=== PATIENT | female | born 1975 | race Two or more races ===

== ENCOUNTER 2018-07-28 10:29 | Emergency (ER) | payer MEDICARE ==
[2018-07-28] MEDS ORDERED: OXYCODONE-ACETAMINOPHEN 5-325 MG TABLET PO ONE ×2 (11:20→15:14)
--- NOTE | 2018-07-28 11:20 | ER Document Report ---
ED General - General Chief Complaint: Neck and Upper Back Pain Stated Complaint: NECK PAIN/LEG AND ARM WEAKNESS Time Seen by Provider: 07/28/18 11:02 Information source: Patient Notes: 42-year-old female that presents today stating she has had some left leg and left arm numbness. She states her left leg is been numb since 2012 her left arm is been numb since April. Patient states that she had a history of an MRI in [place] in March 2018 showing disc degeneration at C5/C6 with left paracentral disc extrusion causing focal flattening of the left side of the thecal sac and focal impingement upon the left side of the cervical cord. She states that she left [place] a month later and has not followed up. Patient supposedly has had degenerative disc disease since 2009. She has seen multiple pain management specialists. She states she went to see orthopedics in [place] in 2012 when she lived there and was told that she needed 5 years of records. Patient also has a history of posttraumatic stress disorder and rheumatoid arthritis for which she takes no medications for. Patient denies any weakness of the arm or leg. She does states she intermittently falls but this has been since 2014. She did go to see a new primary care physician since moving here recently and saw them for the first time on July 18. This was Dr. Kwesi Galan. He did put a referral in for psychiatry for posttraumatic stress disorder to be seen in September. He also put a referral in for [place] [facility]. She states that she called the orthopedic office and they told her that she needed "5 years of records". She does not have any paint mixer machine here and would like further information and possibly another referral. TRAVEL OUTSIDE OF THE [place] IN LAST 30 DAYS: No - HPI Onset: Other - See above Onset/Duration: Gradual, Intermittent - See above Quality of pain: Achy Severity: Mild Pain Level: 1 Associated symptoms: Other - See above Exacerbated by: Movement Similar symptoms previously: No Recently seen / treated by doctor: No - Related Data Allergies/Adverse Reactions: amoxicillin Allergy (Verified 07/28/18 10:39) Sulfa (Sulfonamide Antibiotics) Allergy (Verified 07/28/18 10:39) Past Medical History - Social History Smoking Status: Unknown if Ever Smoked Family History: Reviewed & Not Pertinent Review of Systems - Review of Systems Constitutional: denies: Fever EENT: denies: Eye discharge, Nose discharge Cardiovascular: denies: Chest pain, Palpitations Respiratory: denies: Short of breath Gastrointestinal: denies: Vomiting Genitourinary: denies: Dysuria Musculoskeletal: denies: Leg swelling Skin: Other - no hives. denies: Rash Neurological/Psychological: Other - no slurred speech -: Yes All other systems reviewed and negative Physical Exam - Vital signs Vitals: Temp Pulse Resp BP Pulse Ox 97.9 F 90 17 138/89 H 100 07/28/18 10:50 07/28/18 10:50 07/28/18 10:50 07/28/18 10:50 07/28/18 10:50 Notes: Reviewed vital signs and nursing note as charted by RN. CONSTITUTIONAL: Alert and oriented and responds appropriately to questions. Well-appearing; well-nourished HEAD: Normocephalic; atraumatic EYES: PERRL ENT: Normal nose; no rhinorrhea; moist mucous membranes; pharynx without lesions noted NECK: Supple; tender to the midline cervical spine without any obvious step- offs, swelling, paraspinal muscular swelling or erythema CARD: Regular rate and rhythm; no murmurs; symmetric distal pulses RESP: Normal chest excursion without splinting or tachypnea; breath sounds clear and equal bilaterally ABD/GI: Normal bowel sounds; non-distended; soft, non-tender BACK: The back appears normal and is non-tender to palpation EXT: Normal ROM in all joints; non-tender to palpation; no edema SKIN: No acute lesions noted NEURO: CN 2-12 intact; 5/5 bilateral upper and lower extremity strength with some decreased sensation to touch of the left arm and left leg. Strong distal pulses with excellent capillary refill PSYCH: The patient's mood and manner are appropriate. Grooming and personal hygiene are appropriate. Course - Re-evaluation Re-evalutation: 07/28/18 11:20 Given the history and physical examination with the length of the patient's symptomatology, with 2+ patellar reflexes and biceps reflexes, with numbness on examination, I will order repeat MRI here and then attempt to help expedite the patient's follow-up with either orthopedics and/or neurosurgery. 07/28/18 15:02 MRI as recorded. No change in examination. Attempted to call Dr. Jimenez to speak to him but it went away to a voicemail of his assistant associate full professor. I do not believe the patient requires immediate surgical intervention. I will have the patient attempt to follow-up with his primary care physician but I will also refer the patient here for orthopedic evaluation at our facility. I will provide the patient a short course of pain medications with strict return precautions. She understands her precautions. 07/28/18 15:06 I actually was able to speak directly to Dr. Jimenez. He states that he will attempt to expedite follow-up with orthopedics they will. He also states that there are local neurosurgeons in the area that he believes he will be able to get her into shortly. He would like me to start the patient on a Medrol Dosepak with some pain medications. I believe this is reasonable. - Vital Signs Vital signs: Temp Pulse Resp BP Pulse Ox 97.9 F 90 17 138/89 H 100 07/28/18 10:50 07/28/18 10:50 07/28/18 10:50 07/28/18 10:50 07/28/18 10:50 Discharge - Discharge Clinical Impression: Paresthesia of left arm and leg, Herniated disc, cervical Condition: Good Disposition: HOME, SELF-CARE Additional Instructions: Come back immediately for any increased numbness, weakness, incontinence, fevers, discoloration of the arm or leg, or any other acute problems. Please follow-up with your primary care physician regarding orthopedics, pain management, and neurosurgery as we have discussed. Prescriptions: Methylprednisolone [Medrol Dosepack (4 mg/Tab) 21 Tab/Dosepak] 21 tab PO ASDIR PRN #1 dspk PRN Reason: Oxycodone HCl/Acetaminophen [Percocet 5-325 mg Tablet] 1 tab PO ASDIR PRN #15 tab PRN Reason: Referrals: KWESI BARGER MD [ACTIVE STAFF] - Follow up as needed
--- NOTE | 2018-07-28 14:32 | RADIOLOGY REPORT (SQ) ---
EXAM DESCRIPTION: MRI CERVICAL SPINE WITHOUT COMPLETED DATE/TIME: 07/28/2018 2:08 pm REASON FOR STUDY: 1; left-sided neck pain with left arm and left leg COMPARISON: None. TECHNIQUE: Sagittal and Axial imaging includes T1, T2, STIR and gradient echo sequences. LIMITATIONS: None. FINDINGS: ALIGNMENT: Straightening of the normal cervical lordosis. VERTEBRAE: Intact. BONE MARROW: Normal. No marrow replacement. Minimal degenerative endplate edema at C5-6 posteriorly. DISCS: Mild upper cervical disc signal change with height loss and posterior disc bulge at C5-6. HARDWARE: None in the spine. CORD AND BASE OF BRAIN: Normal in size and signal intensity. SOFT TISSUES: No soft tissue masses. C1-C2: No significant spinal stenosis. C2-C3: No significant spinal stenosis or exit foraminal stenosis. C3-C4: No significant spinal stenosis or exit foraminal stenosis. C4-C5: No significant spinal stenosis or exit foraminal stenosis. C5-C6: Posterior disc bulge, left greater than right, with effacement of the CSF column and contact o f the anterior cord and mild canal stenosis. Moderate left neural foraminal narrowing secondary to d isc and uncovertebral hypertrophy. C6-C7: No significant spinal stenosis or exit foraminal stenosis. C7-T1: No significant spinal stenosis or exit foraminal stenosis. UPPER THORACIC: Incompletely imaged. No significant spinal stenosis or exit foraminal stenosis. OTHER: No other significant finding. IMPRESSION: Mild degenerative changes greatest at C5-6. There is left paramedian posterior disc wit h contact of the anterior cord and mild canal stenosis. Moderate left neural foraminal narrowing sec ondary to disc and uncovertebral hypertrophy. No additional evidence of acute abnormality in the cervical spine. TECHNICAL DOCUMENTATION: JOB ID: [id number]- All Rights Reserved Reading location - IP/workstation name: [email or web address]-[facility]-
[2018-07-28 15:37] VITALS: BP 115/62
== END 2018-07-28 15:44 | disposition home or self-care (01) ==
LOC: ER 10:29
DX: M50.222 Other cervical disc displacement at C5-C6 level (principal); M50.322 Other cervical disc degeneration at C5-C6 level; R20.0 Anesthesia of skin; Z88.0 Allergy status to penicillin; Z88.2 Allergy status to sulfonamides
CPT/HCPCS: 99284; 82962; 72141; A9270

== ENCOUNTER 2018-09-06 22:01 | Emergency (ER) | payer MEDICARE ==
--- NOTE | 2018-09-06 23:14 | RADIOLOGY REPORT (SQ) ---
3 VIEWS OF THE LEFT ANKLE HISTORY: Joint pain. COMPARISON: None. FINDINGS: The ankle mortise is preserved on these nonstress views. No acute fractures seen. No ankle joint effusion. No radiopaque foreign body is identified. IMPRESSION: No acute fracture or dislocation.
[2018-09-07] MEDS ORDERED: KETOROLAC TROMETHAMINE 60 MG/2 ML SDV IM ONE (00:33)
--- NOTE | 2018-09-07 00:49 | ER Document Report ---
HPI - HPI Time Seen by Provider: 09/07/18 00:24 Pain Level: 5 Notes: Patient is a 42-year-old female who presents emergency department complaining of left lateral ankle pain status post injury about 8 hours ago. Patient states that her ankle inverted and she heard a pop. Patient states that since then her pain has been increasing. She has been limping on it today. Pain does not radiate. She has noticed some mild swelling and bruising. No other concerns or complaints. Denies any headache, fever, head injury, neck pain, URI, sore throat, chest pain, palpitations, syncope, cough, shortness of breath, wheeze, dyspnea, abdominal pain, nausea/vomiting/diarrhea, urinary retention, dysuria, hematuria, loss of control of bowel or bladder, numbness/tingling, saddle anesthesia, muscle paralysis, or rash. - ROS Systems Reviewed and Negative: Yes All other systems reviewed and negative - REPRODUCTIVE Reproductive: DENIES: : - MUSCULOSKELETAL Musculoskeletal: REPORTS: Extremity pain - fell/ijured rt. ankle Past Medical History - Social History Smoking Status: Never Smoker Chew tobacco use (# tins/day): No Drug Abuse: None Family History: Reviewed & Not Pertinent Patient has suicidal ideation: No Patient has homicidal ideation: No Renal/ Medical History: Denies: Hx Peritoneal Dialysis Musculoskeletal Medical History: Reports Hx Arthritis - RA Psychiatric Medical History: Reports: Hx Bipolar Disorder Past Surgical History: Reports: Hx Abdominal Surgery, Hx Tubal Ligation Vertical Provider Document - CONSTITUTIONAL Agree With Documented VS: Yes Notes: PHYSICAL EXAMINATION: GENERAL: Well-appearing, well-nourished and in no acute distress. LUNGS: Breath sounds clear to auscultation bilaterally and equal. No wheezes rales or rhonchi. HEART: Regular rate and rhythm without murmurs, rubs, gallops. Musculoskeletal: Lt foot/ankle: LROM to passive/active dorsiflexion. Strength 4+/5 due to pain. N/V intact distal. + tenderness to the lateral malleolus and area of the ATFL. No bony tenderness of the foot. Achilles intact. There is mild swelling and ecchymosis to the lateral ankle. Extremities: No cyanosis, clubbing, or edema b/l. Peripheral pulses 2+. Capillary refill less than 3 seconds. NEUROLOGICAL: Normal speech, limping gait. Normal sensory, motor exams PSYCH: Normal mood, normal affect. SKIN: Warm, Dry, normal turgor, no rashes or lesions noted. - INFECTION CONTROL TRAVEL OUTSIDE OF THE [place] IN LAST 30 DAYS: No Course - Re-evaluation Re-evalutation: 09/07/18 Patient is an afebrile, well-hydrated, 42-year-old female who presents to the ED with left ankle pain which I suspect to be a sprain versus strain. Vitals are acceptable without any significant tachycardia, tachypnea, or hypoxia. PE is otherwise unremarkable for any neurovascular compromise, obvious tendon/ligament rupture, obvious fracture/dislocation, septic joint. X-ray was unremarkable for any acute pathology. Ankle stirrup and crutches were provided today. Patient was given Toradol. Patient is nontoxic-appearing. Patient is able to ambulate and weight-bear although she is limping. No other labs or imaging warranted at this time based on H&P. Conservative measures otherwise for symptoms. Recheck with your PCM in 3-5 days. Consider consult orthopedics. Return to the ED with any worsening/concerning symptoms otherwise as reviewed in discharge. Patient is in agreement. - Vital Signs Vital signs: Temp Pulse Resp BP Pulse Ox 98.5 F 99 16 114/81 100 09/06/18 22:45 09/06/18 22:45 09/06/18 22:45 09/06/18 22:45 09/06/18 22:45 Discharge - Discharge Clinical Impression: Left ankle pain Qualifiers: Chronicity: acute Qualified Code(s): M25.572 - Pain in left ankle and joints of left foot Condition: Stable Disposition: HOME, SELF-CARE Additional Instructions: Rest, Ice, Compression, Elevation Use crutches/splint as directed Tylenol/ibuprofen as needed Light stretches daily Strength exercises as able Moist heat and massage may help F/u with your PCP in 3-5 days for a recheck Consider consult(s) with Orthopedics/physical therapy for ongoing/worsening symptoms Return to the ED with any worsening symptoms and/or development of fever, headache, chest pain, palpitations, syncope, shortness of breath, trouble breathing, abdominal pain, n/v/d, muscle weakness/paralysis, numbness/tingling, swelling, redness, or other worsening symptoms that are concerning to you. Prescriptions: Naproxen 500 mg PO BID #10 tablet Referrals: [facility] [Provider Group] - Follow up as needed
[2018-09-07 01:27] VITALS: BP 110/76
== END 2018-09-07 01:29 | disposition home or self-care (01) ==
LOC: ER 22:01
DX: S90.02XA Contusion of left ankle, initial encounter (principal); M25.572 Pain in left ankle and joints of left foot; X50.9XXA Other and unspecified overexertion or strenuous movements or postures, initial encounter
CPT/HCPCS: 99283; 96372; 73610; L4350; J1885